=== PATIENT | male | born 1975 | race Hispanic/Latino ===

== ENCOUNTER 2021-01-05 02:29 | Emergency (ER) | payer SELFPAY ==
[~2021-01-05] VITALS: Ht 180.3 cm; Wt 68.0 kg
[2021-01-05] MEDS ORDERED: MORPHINE 8MG VIAL IM ONE (03:00)
[2021-01-05] MEDS ORDERED: MORPHINE 5 MG/ML VIAL (5MG OR GREATER DOSE) ONE (03:27)
[2021-01-05] MEDS ORDERED: PHARMACY COMMUNICATION MISC SCH (03:30)
[2021-01-05] MEDS ORDERED: HYDROCODONE/ACETAMINOPHEN 10/325 MG TAB ONE (04:11)
[2021-01-05] MEDS ORDERED: ACET1TAB25 PO (04:14)
[2021-01-05 04:24] VITALS: BP 122/61
[2021-01-05] MEDS ORDERED: HYDROCODONE/ACETAMINOPHEN 10/325 MG TAB PO ONE (04:30)
== END 2021-01-05 04:51 | disposition home or self-care (01) ==
LOC: EDH 02:29
DX: S82.142A Displaced bicondylar fracture of left tibia, initial encounter for closed fracture (principal); X58.XXXA Exposure to other specified factors, initial encounter; Y93.89 Activity, other specified; Y92.89 Other specified places as the place of occurrence of the external cause; Y99.8 Other external cause status
CPT/HCPCS: 29505; 73562; 99283; J2270